=== PATIENT | female | born 1990 | race African-American/Black ===

== ENCOUNTER 2017-09-04 10:10 | Emergency (ER) | payer MEDICAID ==
[~2017-09-04] VITALS: Ht 160 cm; Wt 84.0 kg
[~2017-09-04 10:10] MED LIST: ALBU8I INH; MEDR4PAK3 PO; NAPR-576 PO
[2017-09-04 10:12] VITALS: BP 123/72; PULSE 75; RESP 18; TEMP 97.6; O2SAT 99
--- NOTE | 2017-09-04 10:48 | PD ---
HPI Chief Complaint: Related Problem Time Seen by Provider: 10:18 Travel History International Travel<30 days: No Contact w/Intl Traveler<30days: No Traveled to known affect area: No History of Present Illness HPI 27-year-old female, approximately 12 weeks , presents to the emergency Department with complaint of urinary frequency 2 days. Denies dysuria. States she feels like she is dehydrated because she's been urinating so much. Reports good fluid intake. Reports intermittent cramping that feels like menstrual cramping. Denies cramping at this time. Denies vaginal bleeding, discharge, leakage. Denies fevers, abdominal pain, vomiting. Has not taken any medications or drainage to alleviate her symptoms. Symptoms are mild in severity. Nonradiating or aggravating factors. 3 para 2. Allergies to amoxicillin. [facility]. Does not have an established primary care provider. Denies significant past medical history. No current medications. No other medical complaints. No other modifying factors or associated signs and symptoms. PFSH Past Medical History Hx Anticoagulant Therapy: No Anemia: Yes Cardiovascular Problems: No Chemotherapy: No Cerebrovascular Accident: No Diabetes: No Diminished Hearing: No Respiratory: Yes (ASTHMA) Sickle Cell Disease: Yes (TRAIT) : 2 Para: 2 Past Surgical History Section: Yes (X 2 ) Gynecologic Surgery: Yes (2 C SECTIONS) Hysterectomy: No Other Surgery: Yes (IUD IN PLACE) Social History Alcohol Use: Yes (socially) Tobacco Use: Yes (4-5 cig per day) Substance Use: No Allergies-Medications (Allergen,Severity, Reaction): Coded Allergies: amoxicillin (Unverified Allergy, Severe, Hives, 09/04/17) penicillin G (Unverified Allergy, Severe, 09/04/17) Reported Meds & Prescriptions Reported Meds & Active Scripts Active Medrol Dosepak (Methylprednisolone) 4 Mg Aguila 4 Mg PO DIRECTED TAKE DIRECTED Ventolin Hfa (Albuterol Sulfate) 8 Gm Aero 2 Puff INH Q4 PRN Naproxen 500 Mg Tab 500 Mg PO Q12HR PRN Review of Systems Except as stated in HPI: all other systems reviewed are Neg Physical Exam Narrative GENERAL: Well-nourished, well-developed black female patient, in no acute distress SKIN: Warm and dry. No rash. HEAD: Atraumatic. Normocephalic. EYES: Pupils equal and round. No scleral icterus. No injection or drainage. ENT: Mucosa pink and moist. NECK: Trachea midline. CARDIOVASCULAR: Regular rate and rhythm. No murmur appreciated. RESPIRATORY: No accessory muscle use. Clear to auscultation. Breath sounds equal bilaterally. GASTROINTESTINAL: Abdomen soft, non-tender, nondistended. Hepatic and splenic margins not palpable. Bowel sounds are active 4 quadrants. Bladder nontender and nondistended. MUSCULOSKELETAL: No obvious deformities. No clubbing. No cyanosis. No edema. BACK: No CVA tenderness. NEUROLOGICAL: Awake and alert. Oriented 3. No obvious cranial nerve deficits. Motor grossly within normal limits. Normal speech. Moves all extremities. 5/5 strength to all extremities. PSYCHIATRIC: Appropriate mood and affect; insight and judgment normal. Data Data Last Documented VS Vital Signs Date Time Temp Pulse Resp B/P (MAP) Pulse Ox O2 Delivery O2 Flow Rate FiO2 09/04/17 10:12 97.6 75 18 123/72 (89) 99 Orders Orders Urinalysis - C+S If Indicated (09/04/17 10:25) Heart Tones (09/04/17 10:25) Ed Discharge Order (09/04/17 12:12) Labs Laboratory Tests Test 09/04/17 10:40 Urine Color LIGHT-YELLOW Urine Turbidity CLEAR Urine pH 8.0 Urine Specific [place] 1.008 Urine Protein NEG mg/dL Urine Glucose (UA) NEG mg/dL Urine Ketones NEG mg/dL Urine Occult Blood NEG Urine Nitrite NEG Urine Bilirubin NEG Urine Urobilinogen LESS THAN 2.0 MG/DL Urine Leukocyte Esterase NEG Urine RBC LESS THAN 1 /hpf Urine WBC 3 /hpf Urine Squamous Epithelial Cells <1 /hpf Urine Mucus FEW /lpf Microscopic Urinalysis Comment CULT NOT INDICATED MDM Medical Decision Making Medical Screen Exam Complete: Yes Emergency Medical Condition: Yes Medical Record Reviewed: Yes Differential Diagnosis Cystitis, UTI, pyelonephritis Narrative Course 27-year-old female with urinary frequency. 12 weeks . Has abdominal pain, vaginal bleeding, discharge, leakage. Denies fevers. Patient is afebrile and nontoxic-appearing. heart tones 140's. Urinalysis ordered. 1209: Urinalysis signs of infection or bacteremia. I discussed the patient with Dr. Santillan, my attending physician, and he agrees with discharge. Instructed Patient follow-up with carbon lamp cleaner. Instructed patient to follow up with primary care provider. Patient verbalizes understanding and agreement with treatment plan. Patient is medically cleared and stable for discharge. Discussed reasons to return to the emergency department. Patient agrees with treatment plan. The patients vital signs are stable and the patient is stable for outpatient follow-up and treatment. Patient discharged home, stable and in no acute distress. Diagnosis Primary Impression: Urinary frequency Additional Impression: Qualified Codes: Z3A.12 - 12 weeks gestation of Referrals: [facility] Lower[facility] Operator Primary Care Physician Additional Instructions: Follow up with carbon lamp cleaner Follow-up with primary care provider Return to the emergency department immediately if worsening of symptoms Med/Other Pt SpecificInfo: No Change to Meds, No Meds Exist/No RX given Disposition: DISCHARGE HOME Condition: Stable Vivian [place] Sep 04, 2017 10:48
[2017-09-04 11:08] LABS: BLOOD, URINE NEG (NEG); COMMENT (UR) CULT NOT INDICATED; CULTURE IF INDICATED CULT NOT INDICATED; GLUCOSE,URINE NEG (NEG); KETONE, URINE NEG (NEG); MUCUS URINE FEW /lpf (OCC); NITRITE,URINE NEG (NEG); SQUAMOUS EPITHELIAL CELL URINE <1 /hpf (0-5); URINE COLOR LIGHT-YELLOW (YELLW/STRAW)
== END 2017-09-04 12:28 | disposition home or self-care (01) ==
LOC: NEPD 10:10
DX: O26.891 Other specified pregnancy related conditions, first trimester (principal); R35.0 Frequency of micturition; O99.011 Anemia complicating pregnancy, first trimester; J45.909 Unspecified asthma, uncomplicated; D57.3 Sickle-cell trait; O99.331 Smoking (tobacco) complicating pregnancy, first trimester; Z3A.12 12 weeks gestation of pregnancy
CPT/HCPCS: 81001; 99283

== ENCOUNTER 2017-10-05 20:29 | Emergency (ER) | payer MEDICAID ==
--- NOTE | 2017-10-05 21:19 | PD ---
HPI Chief Complaint Right buttock pain after fall Date Seen: Oct 05, 2017 Time Seen: 21:15 Travel History International Travel<30 Days: No Contact w/Intl Traveler<30Days: No Known Affected Area: No History of Present Illness HPI 27-year-old who is at 16 weeks today who sees Dr. Sage for care. Patient states that at noon today she fell down some stairs was taken out of the trash and felt to strain in her right buttock. Patient is able to walk with minor discomfort and denies abdominal pain. No abdominal trauma was noted. Weeks Gestation: 16 Para: 2 : 3 History Past Medical History Medical History: Denies Significant Hx Obstetric History Obstetric History 2 Past Surgical History Narrative Surgical 2 Family History Family History: Negative Social History Alcohol Use: No Tobacco Use: No Substance Abuse: No Allergies-Medications (Allergen,Severity, Reaction): Coded Allergies: amoxicillin (Unverified Allergy, Severe, Hives, 09/04/17) penicillin G (Unverified Allergy, Severe, 09/04/17) Home Meds Active Scripts Methylprednisolone (Medrol Dosepak) 4 Mg Aguila, 4 MG PO DIRECTED, #1 AGUILA TAKE DIRECTED Prov:Kina Finn MD 07/02/16 Albuterol Sulfate 8 GM Inhaler (Ventolin Hfa) 8 Gm Aero, 2 PUFF INH Q4 Y for SOB /WHEEZING, #1 BOX 0 Refills Prov:Kina Finn MD 07/02/16 Naproxen (Naproxen) 500 Mg Tab, 500 MG PO Q12HR Y for PAIN, #20 TAB Prov:Brien Crouch MD 02/08/16 Review of Systems Except as stated in HPI: all other systems reviewed are Neg Physical Exam Narrative GENERAL: Well-nourished, well-developed patient. SKIN: Warm and dry. HEAD: Normocephalic and atraumatic. EYES: No scleral icterus. No injection or drainage. ENT: No nasal drainage noted. Mucous membranes pink. Airway patent. NECK: Supple, trachea midline. No JVD. CARDIOVASCULAR: Regular rate and rhythm without murmurs, gallops, or rubs. RESPIRATORY: Breath sounds equal bilaterally. No accessory muscle use. ABDOMEN/GI: Abdomen soft, non-tender, bowel sounds present, no rebound, no guarding Gravid to [16-] weeks size GENITOURINARY: FHT's: 135 by Doppler Category: [-] Baseline: [-] Reactive: [-] Variability: [-] Decels: [-] EXTREMITIES: No cyanosis or edema. Normal range of motion both lower extremities, slightly decreased flexibility in right hip flexor. BACK: Nontender without obvious deformity. No CVA tenderness. NEUROLOGICAL: Awake and alert. Motor and sensory grossly within normal limits. Five out of 5 muscle strength in all muscle groups. Normal speech. Data Data Vital Signs Reviewed: Yes [facility] Medical Record Reviewed: Yes Plan 27-year-old with muscle strain after a fall at 16 weeks gestation Patient will take Tylenol as necessary for pain with ice to the right buttock as needed for 24 hours Follow up with OB as scheduled Diagnosis Diagnosis: Primary Impression: 16 weeks gestation of Additional Impressions: Previous delivery affecting , antepartum Muscle strain of gluteal region Disposition: 01 DISCHARGE HOME Yamileth Lozoya MD Oct 05, 2017 21:19
== END 2017-10-05 23:18 | disposition home or self-care (01) ==
LOC: HOBED 20:29
DX: O9A.212 Injury, poisoning and certain other consequences of external causes complicating pregnancy, second trimester (principal); S76.011A Strain of muscle, fascia and tendon of right hip, initial encounter; W10.9XXA Fall (on) (from) unspecified stairs and steps, initial encounter; Z3A.16 16 weeks gestation of pregnancy
CPT/HCPCS: 99284

== ENCOUNTER 2017-12-13 15:32 | Emergency (ER) | payer MEDICAID ==
[2017-12-13 15:48] VITALS: BP 116/55; PULSE 83; RESP 16; TEMP 98.8; O2SAT 100
[2017-12-13 18:25] VITALS: O2SAT 100
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
[2017-12-13 21:30] LABS: HEMATOCRIT 33.8 % (35.0-46.0); MEAN CELL VOLUME 84.5 FL (80.0-100.0); MEAN CORPUSCULAR HEMOGLOBIN 27.4 PG (27.0-34.0); MEAN CORPUSCULAR HGB CONC 32.4 % (32.0-36.0); PLATELET COUNT 348 TH/MM3 (150-450); RED CELL DISTRIBUTION WIDTH 13.4 % (11.6-17.2)
[2017-12-13 21:56] LABS: BILIRUBIN, URINE NEG (NEG); BLOOD, URINE NEG (NEG); GLUCOSE,URINE NEG (NEG); KETONE, URINE NEG (NEG); MUCUS URINE FEW /lpf (OCC); NITRITE,URINE NEG (NEG); PH, URINE 5.5 (5.0-8.5); SQUAMOUS EPITHELIAL CELL URINE 1 /hpf (0-5); URINE COLOR YELLOW (YELLW/STRAW); URINE LEUKOCYTE ESTERASE SMALL (NEG)
== END 2017-12-14 06:45 | disposition home or self-care (01) ==
LOC: HOBED 15:32
DX: O9A.312 Physical abuse complicating pregnancy, second trimester (principal); S39.91XA Unspecified injury of abdomen, initial encounter; R82.99 Other abnormal findings in urine; Y07.03 Male partner, perpetrator of maltreatment and neglect; Z3A.25 25 weeks gestation of pregnancy
CPT/HCPCS: 76815; 80307; 81001; 83030; 85027; 86850; 86900; 86901; 87086; 99284; G0481

== ENCOUNTER 2018-02-22 21:46 | Emergency (ER) | payer MEDICAID ==
--- NOTE | 2018-02-22 22:34 | PD ---
HPI Chief Complaint Decreased movement Date Seen: February 22, 2018 Time Seen: 22:29 Travel History International Travel<30 Days: No Contact w/Intl Traveler<30Days: No Known Affected Area: No History of Present Illness HPI Patient is 27-year-old black female at 36 weeks previous who desires delivery this time. She is a patient of Delia Cabrera and presents complaining of decreased movement some mild cramping. She denies bleeding or leakage of fluid. Baby is moving here in OB ED. NST is reactive and no regular contractions Weeks Gestation: 36 Para: 2 : 3 History Obstetric History Obstetric History 1 vaginal delivery 1 Past Surgical History Narrative Surgical Social History Alcohol Use: No Tobacco Use: No Substance Abuse: No Allergies-Medications (Allergen,Severity, Reaction): Coded Allergies: amoxicillin (Unverified Allergy, Severe, Hives, 09/04/17) penicillin G (Unverified Allergy, Severe, 09/04/17) Home Meds Active Scripts Methylprednisolone (Medrol Dosepak) 4 Mg Aguila, 4 MG PO DIRECTED, #1 AGUILA TAKE DIRECTED Prov:Kina Finn MD 07/02/16 Albuterol Sulfate 8 GM Inhaler (Ventolin Hfa) 8 Gm Aero, 2 PUFF INH Q4 Y for SOB /WHEEZING, #1 BOX 0 Refills Prov:Kina Finn MD 07/02/16 Naproxen (Naproxen) 500 Mg Tab, 500 MG PO Q12HR Y for PAIN, #20 TAB Prov:Brien Crouch MD 02/08/16 Review of Systems General / Constitutional: No: Fever, Weight Gain, Chills, Other Eyes: No: Diploplia, Blurred Vision, Visual changes, Pain, Photophobia HENT: No: Headaches, Vertigo, Lightheadedness Cardiovascular: No: Irregular Rhythm, Chest Pain or Discomfort, Palpitations, Tachycardia, Syncope, Varicosities, Edema, Cyanosis Respiratory: No: Cough, Short of Breath, Other Gastrointestinal: No: Nausea, Vomiting, Diarrhea Genitourinary: No: Decreased Urinary Output, Oliguria Musculoskeletal: No: Limited ROM, Weakness, Cramping, Edema, Pain Skin: No Rash, No Itching, No Dryness, No Lumps, No Change in Pigmentation, No Change in Nails, No Alopecia, No Lesions Neurologic: No: Weakness, Dizziness, Syncope, Focal Abnormalities, Coordination Problem, Headache, Slurred Speech, Seizures Psychiatric: No: Depression, Suicidal Ideations, Homicidal Ideation Endocrine: No: Heat Intolerance, Cold Intolerance, Polydipsia, Polyuria, Other Physical Exam Narrative GENERAL: Well-nourished, well-developed patient. SKIN: Warm and dry. HEAD: Normocephalic and atraumatic. EYES: No scleral icterus. No injection or drainage. ENT: No nasal drainage noted. Mucous membranes pink. Airway patent. NECK: Supple, trachea midline. No JVD. CARDIOVASCULAR: Regular rate and rhythm without murmurs, gallops, or rubs. RESPIRATORY: Breath sounds equal bilaterally. No accessory muscle use. BREASTS: Bilateral exam showed no masses , no retractions, no nipple discharge. ABDOMEN/GI: Abdomen soft, non-tender, bowel sounds present, no rebound, no guarding Gravid to [36-] weeks size Fundal Height: [36-] GENITOURINARY: External Genitalia: intact and normal in appearance BUS glands: [-] Cervix: [post-] Dilatation: [0-] Effacement: [-0] Station: [-3] Presentation: [vtx-] Membranes: [intact ] Uterine Contractions: [-none] FHT's: Category: [-1] Baseline: [-133] Reactive: [R-] Variability: [mod-] Decels: [-0] EXTREMITIES: No cyanosis or edema. BACK: Nontender without obvious deformity. No CVA tenderness. NEUROLOGICAL: Awake and alert. Motor and sensory grossly within normal limits. Five out of 5 muscle strength in all muscle groups. Normal speech. MDM Interpretation(s) Patient is 27-year-old black female PCS at 36 weeks here for decreased movement mild cramping. NST is reactive, no contractions, cervix is closed, Plan to discharge home to kick counts and observations at home. Plan Plan to discharge home as above follow-up with her OB provider Delia Cabrera, and patient hopefully will have a delivery with this baby in the near future Diagnosis Diagnosis: Primary Impression: Decreased movement during in third trimester, antepartum Additional Impressions: Previous section 36 weeks gestation of Disposition: DISCHARGE HOME Condition: Stable Anuj Garcia II, MD February 22, 2018 22:34
== END 2018-02-22 23:24 | disposition home or self-care (01) ==
LOC: HOBED 21:46
DX: O36.8130 Decreased fetal movements, third trimester, not applicable or unspecified (principal); O34.219 Maternal care for unspecified type scar from previous cesarean delivery; Z3A.36 36 weeks gestation of pregnancy
CPT/HCPCS: 59025

== ENCOUNTER 2018-02-28 11:43 | Inpatient (IN) | payer MEDICAID ==
[~2018-02-28] VITALS: Ht 157.5 cm; Wt 96.0 kg
[2018-02-28] MEDS ORDERED: LACTATED RINGER'S 1000 ML INJ 1,000 ML IV PRN (13:23)
--- NOTE | 2018-02-28 13:23 | PD ---
HPI Chief Complaint LOF Date Seen: February 28, 2018 Time Seen: 13:08 Travel History International Travel<30 Days: No Contact w/Intl Traveler<30Days: No Known Affected Area: No History of Present Illness HPI Patient is a 27-year-old female at 36/6 weeks gestation who presented to OB triage with complaints of loss of fluid at 5:30 AM this morning. Patient reports that fluid was slightly blood-tinged but clear. Patient endorses movement and mild contractions. Patient has not had her GBS culture results yet. Patient denies any fevers, chills, chest pain, shortness of breath, nausea or vomiting. Weeks Gestation: 36 Para: 2 : 3 History Past Medical History Medical History: Denies Significant Hx Obstetric History Obstetric History Denies any complications with this thus far C/S x2 -first was due to distress and bradycardia -second was repeat Past Surgical History Narrative Surgical c/s x2 Family History Family History: Negative Social History Alcohol Use: No Tobacco Use: No Substance Abuse: No Allergies-Medications (Allergen,Severity, Reaction): Coded Allergies: amoxicillin (Unverified Allergy, Severe, Hives, 09/04/17) penicillin G (Unverified Allergy, Severe, 09/04/17) Home Meds Active Scripts Methylprednisolone (Medrol Dosepak) 4 Mg Aguila, 4 MG PO DIRECTED, #1 AGUILA TAKE DIRECTED Prov:Kina Finn MD 07/02/16 Albuterol Sulfate 8 GM Inhaler (Ventolin Hfa) 8 Gm Aero, 2 PUFF INH Q4 Y for SOB /WHEEZING, #1 BOX 0 Refills Prov:Kian Finn MD 07/02/16 Naproxen (Naproxen) 500 Mg Tab, 500 MG PO Q12HR Y for PAIN, #20 TAB Prov:Brien Crouch MD 02/08/16 Review of Systems Except as stated in HPI: all other systems reviewed are Neg (per HPI) Physical Exam Narrative GENERAL: Well-nourished, well-developed patient. SKIN: Warm and dry. HEAD: Normocephalic and atraumatic. EYES: No scleral icterus. No injection or drainage. ENT: No nasal drainage noted. Mucous membranes pink. Airway patent. NECK: Supple, trachea midline. No JVD. CARDIOVASCULAR: Regular rate and rhythm without murmurs, gallops, or rubs. RESPIRATORY: Breath sounds equal bilaterally. No accessory muscle use. ABDOMEN/GI: Abdomen soft, non-tender, bowel sounds present, no rebound, no guarding Gravid to 36 weeks size GENITOURINARY: External Genitalia: intact and normal in appearance Dilatation: closed Effacement: 30 Station: -3 Membranes:SROM at 5:30 am on 02/28 Uterine Contractions: irregular FHT's: Category: 1 Baseline: 130 Reactive: yes Variability:moderate Decels: none EXTREMITIES: No cyanosis or edema. BACK: Nontender without obvious deformity. No CVA tenderness. NEUROLOGICAL: Awake and alert. Motor and sensory grossly within normal limits. Five out of 5 muscle strength in all muscle groups. Normal speech. Data Data Vital Signs Reviewed: Yes [facility] Medical Record Reviewed: Yes Plan Patient is a 27-year-old female at 36/6 weeks gestation who presented to OB triage with complaints of loss of fluid at 5:30 AM this morning. IUP at 36/6 weeks gestation 1. monitor VS and monitoring 2. category 1, NST reassuring 3. amnisure positive 4. GBS unknown, pt allergic to pen G will ppx treat with IV clindamycin 5. cervical check: closed/30/ -3 6. pitocin 2:2:30 7. Admit to L&D for labor ELTON Esquivel Patient Instructions: General Instructions Departure Forms: Tests/Procedures Bethany Traore MD, R1 February 28, 2018 13:23
[2018-02-28] MEDS ORDERED: LIDOCAINE HCL 1% 50 ML VIAL I-DERMAL PRN (13:30)
[2018-02-28] MEDS ORDERED: OXYTOCIN 30 UNITS-500ML PREMIX 500 ML IV PRN (13:30)
[2018-02-28] MEDS ORDERED: MINERAL OIL 10 ML VIAL TOPICAL PRN (13:30)
[2018-02-28] MEDS ORDERED: CITRIC ACID-SODIUM CITRATE LIQ 30 ML UDC PO SCH (13:30)
[2018-02-28] MEDS ORDERED: SODIUM CHLORID 0.9% 500 ML INJ 500 ML IV PRN (13:30)
[2018-02-28] MEDS ORDERED: LIDOCAINE HCL 1% 50 ML VIAL INFIL PRN (13:30)
[2018-02-28] MEDS ORDERED: OXYTOCIN 30 UNITS-500ML PREMIX 500 ML IV ONE (13:30)
--- NOTE | 2018-02-28 13:32 | HHI.HP ---
History & Physical H&P HPI Chief Complaint LOF Date Seen: February 28, 2018 Time Seen: 13:08 Travel History International Travel<30 Days: No Contact w/Intl Traveler<30Days: No Known Affected Area: No History of Present Illness HPI Patient is a 27-year-old female at 36/6 weeks gestation who presented to OB triage with complaints of loss of fluid at 5:30 AM this morning. Patient reports that fluid was slightly blood-tinged but clear. Patient endorses movement and mild contractions. Patient has not had her GBS culture results yet. Patient denies any fevers, chills, chest pain, shortness of breath, nausea or vomiting. Weeks Gestation: 36 Para: 2 : 3 History (Limited) History Past Medical History Medical History: Denies Significant Hx Obstetric History Obstetric History Denies any complications with this thus far C/S x2 -first was due to distress and bradycardia -second was repeat Past Surgical History Narrative Surgical c/s x2 Family History Family History: Negative Social History Alcohol Use: No Tobacco Use: No Substance Abuse: No Allergies-Medications Allergies-Medications (Allergen,Severity, Reaction): Coded Allergies: amoxicillin (Unverified Allergy, Severe, Hives, 09/04/17) penicillin G (Unverified Allergy, Severe, 09/04/17) Home Meds Active Scripts Methylprednisolone (Medrol Dosepak) 4 Mg Aguila, 4 MG PO DIRECTED, #1 AGUILA TAKE DIRECTED Prov:Kina Finn MD 07/02/16 Albuterol Sulfate 8 GM Inhaler (Ventolin Hfa) 8 Gm Aero, 2 PUFF INH Q4 Y for SOB /WHEEZING, #1 BOX 0 Refills Prov:Kina Finn MD 07/02/16 Naproxen (Naproxen) 500 Mg Tab, 500 MG PO Q12HR Y for PAIN, #20 TAB Prov:Brien Crouch MD 02/08/16 ROS Review of Systems Except as stated in HPI: all other systems reviewed are Neg (per HPI) Physical Exam Physical Exam Narrative GENERAL: Well-nourished, well-developed patient. SKIN: Warm and dry. HEAD: Normocephalic and atraumatic. EYES: No scleral icterus. No injection or drainage. ENT: No nasal drainage noted. Mucous membranes pink. Airway patent. NECK: Supple, trachea midline. No JVD. CARDIOVASCULAR: Regular rate and rhythm without murmurs, gallops, or rubs. RESPIRATORY: Breath sounds equal bilaterally. No accessory muscle use. ABDOMEN/GI: Abdomen soft, non-tender, bowel sounds present, no rebound, no guarding Gravid to 36 weeks size GENITOURINARY: External Genitalia: intact and normal in appearance Dilatation: closed Effacement: 30 Station: -3 Membranes:SROM at 5:30 am on 02/28 Uterine Contractions: irregular FHT's: Category: 1 Baseline: 130 Reactive: yes Variability:moderate Decels: none EXTREMITIES: No cyanosis or edema. BACK: Nontender without obvious deformity. No CVA tenderness. NEUROLOGICAL: Awake and alert. Motor and sensory grossly within normal limits. Five out of 5 muscle strength in all muscle groups. Normal speech. Data Data Data Vital Signs Reviewed: Yes MDM MDM Medical Record Reviewed: Yes Plan Patient is a 27-year-old female at 36/6 weeks gestation who presented to OB triage with complaints of loss of fluid at 5:30 AM this morning. IUP at 36/6 weeks gestation 1. monitor VS and monitoring 2. category 1, NST reassuring 3. amnisure positive 4. GBS unknown, pt allergic to pen G will ppx treat with IV clindamycin 5. cervical check: closed/30/ -3 6. pitocin 2:2:30 7. Admit to L&D for labor Bethany Rock Dr[address] MD, R1 February 28, 2018 13:32
[2018-02-28] MEDS ORDERED: SODIUM CHLOR 0.9% 1000 ML INJ 1,000 ML IV PRN (13:43)
[2018-02-28 14:36] LABS: BACTERIA, URINE RARE /hpf; BILIRUBIN, URINE NEG (NEG); BLOOD, URINE MOD (NEG); GLUCOSE,URINE NEG (NEG); KETONE, URINE NEG (NEG); NITRITE,URINE NEG (NEG); SQUAMOUS EPITHELIAL CELL URINE 1 /hpf (0-5); URINE COLOR LIGHT-YELLOW (YELLW/STRAW); URINE LEUKOCYTE ESTERASE NEG (NEG)
[2018-02-28 14:42] LABS: BASOPHIL % 0.4 % (0.0-2.0); EOSINOPHIL # 0.1 TH/MM3 (0-0.4); EOSINOPHIL % 1.2 % (0.0-4.0); HEMATOCRIT 32.7 % (35.0-46.0); HEMOGLOBIN 11.1 GM/DL (11.6-15.3); LYMPH % 22.6 % (9.0-44.0); LYMPHOCYTE # 2.6 TH/MM3 (1.0-4.8); MEAN CELL VOLUME 80.9 FL (80.0-100.0); MEAN CORPUSCULAR HEMOGLOBIN 27.4 PG (27.0-34.0); MEAN CORPUSCULAR HGB CONC 33.9 % (32.0-36.0); MEAN PLATELET VOLUME 8.4 FL (7.0-11.0); MONO % 6.3 % (0.0-8.0); MONOCYTE # 0.7 TH/MM3 (0-0.9); NEUT % 69.5 % (16.0-70.0); PLATELET COUNT 380 TH/MM3 (150-450); RED BLOOD COUNT 4.04 MIL/MM3 (4.00-5.30); WHITE BLOOD COUNT 11.5 TH/MM3 (4.0-11.0)
[2018-02-28] MEDS: LACTATED RINGER'S 1000 ML INJ 1,000 ML IV SCH ×2 (14:46→21:23)
[2018-02-28] MEDS: CLINDAMYCIN 900 MG/NS PREMIX 50 ML IV SCH (15:24)
[2018-03-01] MEDS: LACTATED RINGER'S 1000 ML INJ 1,000 ML IV SCH (05:23)
[2018-03-01] MEDS: CLINDAMYCIN 900 MG/NS PREMIX 50 ML IV SCH ×2 (07:48)
[2018-03-01] MEDS ORDERED: VANCOMYCIN INJ 1 GM in SODIUM CHLORIDE 0.9% INJ 250 ML IV SCH (10:00)
[2018-03-01] MEDS ORDERED: VANCOMYCIN INJ 1,000 MG in SODIUM CHLOR 0.9% 250 ML INJ 250 ML IV SCH (11:00)
[2018-03-01] MEDS ORDERED: VANCOMYCIN INJ 1,000 MG in SODIUM CHLORIDE 0.9% INJ 250 ML IV SCH (11:00)
--- NOTE | 2018-03-01 11:52 | PD.LABORPN ---
Subjective Subjective Patient was seen and examined this morning with Dr. Esquivel. Patient comfortable. Without specific complaints. Objective Objective Pelvic Exam: Cervix: Posterior Dilatation: 0-1 Effacement: 100% Station: -3 Presentation: [-] Membranes: ruptured Uterine Contractions: q2-3 minutes FHT's: Category: I Baseline: 130s Reactive: +accels Variability: moderate Decels: none noted Weeks Gestation: 36 Assessment/Plan Assessment and Plan Patient is a 27-year-old female at 37 weeks gestation admitted to L&D s/p [facility] at home. Patient with history of two prior cesarians, desiring if able this . IUP at 37 weeks gestation -category 1 tracing -amnisure positive -GBS unknown, pt allergic to pen G will ppx treat with IV clindamycin, transition to IV Vancomycin -Cervix this AM: 0-1/100/-3 -Continue pitocin at 2-2-30 sdw Joaquín Dunn MD R2 March 01, 2018 11:52
[2018-03-01] MEDS ORDERED: LACTATED RINGER'S 1000 ML INJ 1,000 ML IV ONE (12:00)
[2018-03-01] MEDS ORDERED: LIDOCAINE HCL 1% PF 5 ML SYRINGE OTHER ONE (12:00)
[2018-03-01] MEDS ORDERED: ONDANSETRON HCL 4 MG/2 ML VIAL IV ONE (12:00)
[2018-03-01] MEDS ORDERED: OXYTOCIN 10 UNIT/ML AMP IV ONE (12:00)
[2018-03-01] MEDS ORDERED: PHENYLEPH/NS 1000 MCG/10 ML SYR IV ONE (12:00)
[2018-03-01] MEDS ORDERED: ePHEDrine/NS 25 MG/5 ML SYRINGE IV ONE (12:00)
[2018-03-01] MEDS ORDERED: DEXAMETHASONE SOD PHOS 4 MG/ML VIAL IV ONE (12:00)
[2018-03-01] MEDS ORDERED: GENTAMICIN INJ 120 MG in SODIUM CHLORIDE 0.9% INJ 100 ML IV ONE (13:00)
--- NOTE | 2018-03-01 13:12 | HHI.PR ---
[employer] Note Note with premature rupture membranes yesterday with 2 prior sections here for . Patient was admitted and started on vancomycin she had a penicillin allergy. Cervix exam is cl/50/-3 with mild contractions q 5 min on pitocin augmentation since yesterday at 1pm. No cervical change. Plan c- section for failure to progress in a prior x 2 Yamileth Lozoya MD March 01, 2018 13:12
[2018-03-01] MEDS ORDERED: MORPHINE SULFATE PF 5 MG/10 ML VIAL ONE (13:23)
[2018-03-01] MEDS ORDERED: diphenhydrAMINE HCL 50 MG/ML VIAL ONE (14:45)
[2018-03-01] MEDS ORDERED: OXYTOCIN 30 UNITS-500ML PREMIX 500 ML ONE (15:37)
[2018-03-01] MEDS ORDERED: ACETAMINOPHEN 1000 MG/100 ML 100 ML IV ONE ×2 (15:45→16:00)
[2018-03-01] MEDS ORDERED: SODIUM CHLORIDE 0.9% FLUSH 10 ML FLUSH IV FLUSH PRN (16:00)
[2018-03-01] MEDS ORDERED: OXYTOCIN 30 UNITS-500ML PREMIX 500 ML IV ONE (16:00)
--- NOTE | 2018-03-01 16:08 | PD.OB.DELI ---
Procedure Note Section Procedure Pre Op Diagnosis: (1) 38 weeks gestation of (2) Previous delivery affecting , antepartum (3) Failure to progress in labor, delivered, current hospitalization Post Op Diagnosis: Performed by Yamileth Lozoya Procedure: Repeat Low Transverse Sec Indication for delivery: Desired elective repeat Informed consent obtained: For anesthesia, For procedure Confirmed correct: Time-out taken Anesthesia: Spinal Medication prior to procedure: As documented in eMAR, Antibiotics, IV Monitoring during procedure: Blood pressure monitoring, secured entrance monitor Urinary catheter: Inserted using sterile technique, To dependent drainage Sterile preparation: Duraprep, In usual fashion Position: Supine with wedge to left side Operative Features Skin Incision: Pfannenstiel Uterine Incision: Low transverse w/knife / blunt ext Membranes Ruptured: Previously Presentation: Occiput anterior, Vertex Delivery date: March 01, 2018 Delivery time: 14:08 Delivery of infant: Uneventful : Male One Minute : 8 Five Minute : 9 Weight: 2475 Status of : Viable Placenta delivered: Intact Medications: Antibiotics Estimated blood loss: 600cc Procedure tolerated: Well Maternal Complications: Other (Extensive dense adhesions throughout pelvic) Maternal Condition: Stable Condition: Stable Yamileth Lozoya MD March 01, 2018 16:08
[2018-03-01] MEDS ORDERED: ONDANSETRON ODT 4 MG TAB PO PRN (16:15)
[2018-03-01] MEDS ORDERED: EPIDURAL-DIPHENHYDRAMINE HCL 50 MG CAP PO PRN (17:00)
[2018-03-01] MEDS ORDERED: EPIDURAL-NALOXONE HCL 0.4 MG/ML AMP IV PUSH PRN (17:00)
[2018-03-01] MEDS ORDERED: EPIDURAL-DO NOT ADMINISTER ANTICOAGULANTS PRN (17:00)
[2018-03-01] MEDS ORDERED: EPIDURAL-NO SYSTEMIC NARCOTICS PRN (17:00)
[2018-03-01] MEDS ORDERED: EPIDURAL-DIPHENHYDRAMINE HCL 50 MG/ML VIAL IV PUSH PRN (17:00)
[2018-03-01] MEDS ORDERED: hydrOXYzine HCL 50 MG/ML VIAL IM PRN (18:30)
[2018-03-01 20:07] VITALS: BP 92/52; PULSE 70; RESP 18; TEMP 98.4
[2018-03-01] MEDS ORDERED: SODIUM CHLORIDE 0.9% FLUSH 10 ML FLUSH IV FLUSH SCH (21:00)
[2018-03-01] MEDS ORDERED: LACTATED RINGER'S 1000 ML INJ 1,000 ML IV SCH (21:00)
[2018-03-01] MEDS ORDERED: OXYTOCIN 30 UNITS-500ML PREMIX 500 ML IV PRN (21:00)
[2018-03-01 23:51] VITALS: BP 95/52; PULSE 80; RESP 18; TEMP 97.2
[2018-03-02 04:08] VITALS: BP 109/64; PULSE 69; RESP 17; TEMP 98.5
[2018-03-02] MEDS: DOCUSATE SODIUM 50 MG/SENNA 8.6 MG TAB PO PRN ×2 (05:12→19:40)
[2018-03-02] MEDS: IBUPROFEN 600 MG TAB PO PRN ×3 (05:13→19:36)
[2018-03-02] MEDS: oxyCODONE/ACETAMINOPHEN 5 MG/325 MG TAB PO PRN ×3 (05:13→19:36)
[2018-03-02 05:54] LABS: AUTOMATED NEUTROPHIL # 10.8 TH/MM3 (1.8-7.7); BASOPHIL # 0.1 TH/MM3 (0-0.2); BASOPHIL % 0.7 % (0.0-2.0); EOSINOPHIL # 0.1 TH/MM3 (0-0.4); EOSINOPHIL % 0.5 % (0.0-4.0); HEMATOCRIT 29.7 % (35.0-46.0); HEMOGLOBIN 10.1 GM/DL (11.6-15.3); LYMPH % 20.1 % (9.0-44.0); MEAN CELL VOLUME 79.6 FL (80.0-100.0); MEAN CORPUSCULAR HGB CONC 33.9 % (32.0-36.0); MEAN PLATELET VOLUME 7.7 FL (7.0-11.0); MONO % 5.6 % (0.0-8.0); MONOCYTE # 0.8 TH/MM3 (0-0.9); NEUT % 73.1 % (16.0-70.0); PLATELET COUNT 314 TH/MM3 (150-450); RED BLOOD COUNT 3.74 MIL/MM3 (4.00-5.30); WHITE BLOOD COUNT 14.7 TH/MM3 (4.0-11.0)
--- NOTE | 2018-03-02 08:33 | MP ---
cc: Yamileth Lozoya MD DATE OF OPERATION: 03/01/2018 DATE OF PROCEDURE: 03/01/2018 PREOPERATIVE DIAGNOSES: 1. A 38-week gestation. 2. Previous section x 2. 3. Failure to progress with a failed vaginal after attempt. POSTOPERATIVE DIAGNOSES: 1. A 38-week gestation. 2. Previous section x 2. 3. Failure to progress with a failed vaginal after attempt. PROCEDURE PERFORMED: Repeat low transverse section without extension. ESTIMATED BLOOD LOSS: 600 mL. ANESTHESIA: Spinal. COMPLICATIONS: None. MEDICATIONS: The patient was already on vancomycin. Gentamicin was added to her preop antibiotics. DRAINS: Espinoza to gravity. SPECIMENS: No pathology. COUNTS: Correct x 3. FINDINGS: Extensive adhesions throughout the pelvis attaching the entire anterior portion of the uterus from the serosa down to the muscular layer of the uterus to the anterior abdominal wall and the fascia. Infant male was delivered in a vertex presentation. Apgars were 8 and 9. Weight was 5 pounds 3 ounces with clear fluid. Hemostasis was noted after the case. DESCRIPTION OF PROCEDURE: The patient was taken down to the operating room, prepped and draped in the usual sterile fashion and placed in dorsal supine position. After adequate anesthetic was obtained, she was placed into the left lateral tilt in the dorsal supine position and a Pfannenstiel incision was made through her previous scar and taken down to the fascia. The fascia was nicked in the midline and extended bilaterally and taken off the rectus muscles. Muscles were divided in the midline. The anterior peritoneum was taken down ,extended superiorly and inferiorly, taking care to avoid traumatization of the bowel and the bladder. Dense adhesions were encountered here which were taken down carefully with the Bovie, as well as the Berry scissors. Extensions of the dissection went from the vesicouterine peritoneum up to the round ligament. Once the adhesions were taken down, a transverse hysterotomy incision was made in the uterus and bluntly extended bilaterally. Infant was delivered into the operative field. Rest of the body was delivered, handed off to the resuscitation team after a 45 second cord clamping delay. Hysterotomy incision was identified. Additional adhesions were taken down, so I could visualize the entire incision, and at this point, the endometrial cavity was evacuated of all blood and clot material. The hysterotomy incision was repaired using running locking chromic suture. Additional [id number] were used throughout the serosa of the uterus to establish hemostasis. The patient had extensive denuded areas due to the adhesiolysis that were made hemostatic and once hemostasis was achieved, Interceed was placed along the anterior surface of the uterus. Abdominal musculature was plicated together in the midline using 3-0 Vicryl and a #1 PDS was used to close the fascia. Subcuticular suture of Monocryl was placed in the skin. She tolerated the procedure well. She was taken back to the recovery room in good condition. MD MEE Garcia/VARUN , 08:14 AM , 08:32 AM
--- NOTE | 2018-03-02 08:48 | HHI.OB ---
Subjective Post Operative Day: 1 Remarks Patient seen and examined this morning. AFVSS overnight. Postoperative day #1. Patient states her pain has been well-controlled. Incision not draining. Decreased lochia. Denies dysuria. No breast tenderness. Appetite good. No nausea or vomiting. Not yet passing flatus. Denies fevers or chills, calf pain , shortness of breath, or cough. Objective Vitals/I&O Vital Signs Date Time Temp Pulse Resp B/P (MAP) Pulse Ox O2 Delivery O2 Flow Rate FiO2 03/02/18 04:08 98.5 69 17 109/64 (79) 03/01/18 23:51 97.2 80 18 95/52 (66) 03/01/18 20:07 98.4 70 18 92/52 (65) Result Diagram: 03/02/18 0528 Objective Remarks GENERAL: Well-nourished, well-developed patient. CARDIOVASCULAR: Regular rate and rhythm without murmurs, gallops, or rubs. RESPIRATORY: Breath sounds equal bilaterally. No accessory muscle use. ABDOMEN/GI: Abdomen soft, non-tender, bowel sounds present. Incision: Covered by dressing, appearing dry Fundus: Firm, non-tender at umbilicus. GENITOURINARY: Light to moderate bleeding. EXTREMITIES: No cyanosis or edema, non-tender, without signs of DVT. Medications and IVs Current Medications Medications (Trade) Dose Ordered Sig/Bradly Route Start Time Stop Time Status Last Admin Lactated Ringer's 1,000 ml @ 125 mls/hr Q8H IV 02/28/18 13:23 03/01/18 05:23 Lactated Ringer's 1,000 ml @ 3,000 mls/hr Q20M PRN IV 02/28/18 13:23 Sodium Chloride 1,000 ml @ 100 mls/hr Q10H PRN IV 02/28/18 13:43 (Xylocaine 1% Inj (50 ml)) 0.1 ml UNSCH X1 PRN I-DERMAL 02/28/18 13:30 03/03/18 13:29 (Bicitra Liq) 30 ml G[employer] MAIN [employer] LINE FITTER PO 02/28/18 13:30 03/04/18 13:29 (fentaNYL INJ) 50 mcg Q1H PRN IV PUSH 02/28/18 13:30 (fentaNYL INJ) 100 mcg Q1H PRN IV PUSH 02/28/18 13:30 (Xylocaine 1% Inj (50 ml)) 10 ml UNSCH X1 PRN INFIL 02/28/18 13:30 03/02/18 13:29 (Muri-Lube Oil) 10 ml UNSCH PRN TOPICAL 02/28/18 13:30 Oxytocin 500 ml @ 0 mls/hr TITRATE PRN IV 02/28/18 13:30 02/28/18 14:49 Lactated Ringer's 1,000 ml @ 100 mls/hr Q10H IV 03/01/18 21:00 03/02/18 16:59 03/01/18 21:00 Oxytocin 500 ml @ 100 mls/hr UNSCH X1 PRN IV 03/01/18 21:00 03/02/18 20:59 (NS Flush) 2 ml BID IV FLUSH 03/01/18 21:00 (NS Flush) 2 ml UNSCH PRN IV FLUSH 03/01/18 16:00 (Mylicon Chew) 80 mg QID PRN PO 03/01/18 16:00 (Motrin) 600 mg Q6H PRN PO 03/01/18 16:00 03/02/18 05:13 (Percocet 5-325 Mg) 1 tab Q4H PRN PO 03/01/18 16:00 03/02/18 05:13 (Percocet 5-325 Mg) 2 tab Q4H PRN PO 03/01/18 16:00 (Sandra-Colace) 2 tab Q12H PRN PO 03/01/18 16:00 03/02/18 05:12 (M-M-R Ii Inj) 0.5 ml ONCE ONCE SQ 03/02/18 16:00 03/02/18 16:01 (Boostrix Inj) 0.5 ml ONCE ONCE IM 03/02/18 16:00 03/02/18 16:01 (Zofran Odt) 4 mg Q6H PRN PO 03/01/18 16:15 ([facility] Nursing Information) NO SYSTEMIC NARCOTICS TO BE GIVEN FO... UNSCH PRN .XX 03/01/18 17:00 03/02/18 16:59 (Narcan Inj) 0.4 mg UNSCH PRN IV PUSH 03/01/18 17:00 03/02/18 16:59 (Benadryl Inj) 25 mg Q6H PRN IV PUSH 03/01/18 17:00 03/02/18 16:59 (Benadryl) 50 mg Q6H PRN PO 03/01/18 17:00 03/02/18 16:59 ([facility] Nursing Information) ALL NURSING DEPARTMENTS UNSCH PRN .XX 03/01/18 17:00 03/02/18 16:59 (Vistaril Inj) 50 mg Q6H PRN IM 03/01/18 18:30 03/01/18 19:13 Assessment/Plan Assessment and Plan 28 year-old POD#1 s/p due to failure to progress. 1. Postoperative Care - AFVSS - Incision covered by bandage, appearing dry - Postop H&H reviewed and within normal limits - Percocet and Motrin prn pain - Encouraged OOB, as tolerated - Advised pelvic rest x 6 weeks - Contraception: Discussed with patient this morning, patient will follow up with her outpatient OB provider - F/u in 1 week with OB provider for incision check dw Dr. Lozoya Discharge Planning Anticipate discharge home in 1-2 days pending stable clinical course Joaquín Baxter MD R2 March 02, 2018 08:48
[2018-03-02] MEDS ORDERED: MEASLES, MUMPS, RUBELLA VACCINE 0.5 ML VIAL SQ ONE (16:00)
[2018-03-02] MEDS ORDERED: DIPHTH/TETANUS/ACEL PERTUSSIS (BOOSTER) 0.5 ML VIAL/PFS IM ONE (16:00)
[2018-03-03] MEDS: oxyCODONE/ACETAMINOPHEN 5 MG/325 MG TAB PO PRN ×5 (02:04→22:18)
[2018-03-03] MEDS: IBUPROFEN 600 MG TAB PO PRN ×4 (02:04→22:16)
[2018-03-03] MEDS: DOCUSATE SODIUM 50 MG/SENNA 8.6 MG TAB PO PRN ×2 (08:31→22:16)
--- NOTE | 2018-03-03 08:48 | HHI.OB ---
Subjective Post Operative Day: 2 Remarks Patient seen and examined this morning. AFVSS overnight. Postoperative day #2. Patient states her pain has been relatively well controlled with her current pain regimen, improved from yesterday. Incision not draining. Decreased lochia. Denies dysuria. No breast tenderness. Appetite good. No nausea or vomiting. Endorses flatus. Ambulating well. Denies fevers or chills, calf pain, shortness of breath, or cough. She otherwise has no other complaints or concerns this morning. Objective Result Diagram: 03/02/18 0528 Objective Remarks GENERAL: Well-nourished, well-developed patient. CARDIOVASCULAR: Regular rate and rhythm without murmurs, gallops, or rubs. RESPIRATORY: Breath sounds equal bilaterally. No accessory muscle use. ABDOMEN/GI: Abdomen soft, non-tender, bowel sounds present. Incision: c/d/i Fundus: Firm, non-tender at umbilicus. GENITOURINARY: Light to moderate bleeding. EXTREMITIES: No cyanosis or edema, non-tender, without signs of DVT. Medications and IVs Current Medications Medications (Trade) Dose Ordered Sig/Bradly Route Start Time Stop Time Status Last Admin Lactated Ringer's 1,000 ml @ 125 mls/hr Q8H IV 02/28/18 13:23 03/01/18 05:23 Lactated Ringer's 1,000 ml @ 3,000 mls/hr Q20M PRN IV 02/28/18 13:23 Sodium Chloride 1,000 ml @ 100 mls/hr Q10H PRN IV 02/28/18 13:43 (Xylocaine 1% Inj (50 ml)) 0.1 ml UNSCH X1 PRN I-DERMAL 02/28/18 13:30 03/03/18 13:29 (Bicitra Liq) 30 ml STICK ROLLER PO 02/28/18 13:30 03/04/18 13:29 (fentaNYL INJ) 50 mcg Q1H PRN IV PUSH 02/28/18 13:30 (fentaNYL INJ) 100 mcg Q1H PRN IV PUSH 02/28/18 13:30 (Muri-Lube Oil) 10 ml UNSCH PRN TOPICAL 02/28/18 13:30 Oxytocin 500 ml @ 0 mls/hr TITRATE PRN IV 02/28/18 13:30 02/28/18 14:49 (NS Flush) 2 ml BID IV FLUSH 03/01/18 21:00 (NS Flush) 2 ml UNSCH PRN IV FLUSH 03/01/18 16:00 (Mylicon Chew) 80 mg QID PRN PO 03/01/18 16:00 (Motrin) 600 mg Q6H PRN PO 03/01/18 16:00 03/03/18 08:23 (Percocet 5-325 Mg) 1 tab Q4H PRN PO 03/01/18 16:00 03/02/18 12:53 (Percocet 5-325 Mg) 2 tab Q4H PRN PO 03/01/18 16:00 03/03/18 08:24 (Sandra-Colace) 2 tab Q12H PRN PO 03/01/18 16:00 03/03/18 08:31 (Zofran Odt) 4 mg Q6H PRN PO 03/01/18 16:15 (Vistaril Inj) 50 mg Q6H PRN IM 03/01/18 18:30 03/01/18 19:13 Assessment/Plan Assessment and Plan 28 year-old POD#2 s/p due to failure to progress. 1. Postoperative Care - AFVSS - Incision clean, dry, intact - Postop H&H reviewed and within normal limits - Percocet and Motrin prn pain - Encouraged OOB, as tolerated - Advised pelvic rest x 6 weeks - Contraception: Discussed with patient this morning, patient will follow up with her outpatient OB provider - Instructed f/u in 1 week with OB provider for incision check wdw OB hospitalist Discharge Planning Anticipate discharge home today or tomorrow pending stable clinical course Joaquín Baxter MD R2 Mar 03, 2018 08:48
--- NOTE | 2018-03-03 08:49 | HHI.DCPOC ---
Discharge Care Plan Diagnosis: (1) care following delivery Report Symptoms to Your Doctor -Temperature above 100.5 degrees -Redness, of incision or excessive or foul smelling drainage -Unusual pain or calf pain -Increased vaginal bleeding -Painful or difficulty urinating -Feelings of extreme sadness or anxiety after 2 weeks Goals to Promote Your Health * To maintain your health at the optimal level, follow-up with your OB provider within 1 week after hospital discharge for an incision check. Directions to Meet Your Goals Take your medications as prescribed Follow your dietary instruction Follow activity as directed Ensure plenty of rest for recovery Drink fluids for hydration Keep your appointments as scheduled Take your immunizations and boosters as scheduled If your symptoms worsen call your PCP, if no PCP go to Urgent Care Center or Emergency Room Smoking is Dangerous to Your Health. Avoid second hand smoke Call the 24-hour crisis hotline for domestic abuse at Joaquín Baxter MD R2 Mar 03, 2018 08:49
[2018-03-03] MEDS ORDERED: PERI PO (08:50)
[2018-03-03] MEDS ORDERED: OXYC1TAB63 PO (08:50)
[2018-03-03] MEDS ORDERED: IBUP-232 PO (08:50)
[2018-03-03] MEDS: SIMETHICONE 80 MG CHEWABLE TAB PO PRN (17:57)
[2018-03-03 21:16] VITALS: BP 134/73; PULSE 93; RESP 17; TEMP 97.8
[2018-03-04] MEDS: oxyCODONE/ACETAMINOPHEN 5 MG/325 MG TAB PO PRN ×2 (05:03→12:03)
[2018-03-04] MEDS: SIMETHICONE 80 MG CHEWABLE TAB PO PRN (05:03)
[2018-03-04] MEDS: IBUPROFEN 600 MG TAB PO PRN ×2 (05:04→12:02)
--- NOTE | 2018-03-04 07:56 | HHI.OB ---
Subjective Post Operative Day: 3 Remarks Patient seen and examined this morning. AFVSS overnight. Postoperative day #3. Patient states her pain has been tolerable. Incision not draining. Decreased lochia. Denies dysuria. No breast tenderness. Appetite good. No nausea or vomiting. Endorses flatus. Patient does report some dizziness, however she states she has been ambulating well without significant dizziness or lightheadedness. Denies fevers or chills, calf pain, shortness of breath, or cough. She otherwise has no other complaints or concerns this morning. (Joaquín Baxter MD R2) Remarks Patient seen and evaluated with resident under direct supervision, agree with assessment and plan. (Kenny Hannah MD) Objective Vitals/I&O Vital Signs Date Time Temp Pulse Resp B/P (MAP) Pulse Ox O2 Delivery O2 Flow Rate FiO2 03/03/18 21:16 97.8 93 17 134/73 (93) (Joaquín Baxter MD R2) Result Diagram: 03/02/18 0528 Objective Remarks GENERAL: Well-nourished, well-developed patient. CARDIOVASCULAR: Regular rate and rhythm without murmurs, gallops, or rubs. RESPIRATORY: Breath sounds equal bilaterally. No accessory muscle use. ABDOMEN/GI: Abdomen soft, non-tender, bowel sounds present. Incision: c/d/i Fundus: Firm, non-tender at umbilicus. GENITOURINARY: Light to moderate bleeding. EXTREMITIES: No cyanosis or edema, non-tender, without signs of DVT. Medications and IVs Current Medications Medications (Trade) Dose Ordered Sig/Bradly Route Start Time Stop Time Status Last Admin Lactated Ringer's 1,000 ml @ 125 mls/hr Q8H IV 02/28/18 13:23 03/01/18 05:23 Lactated Ringer's 1,000 ml @ 3,000 mls/hr Q20M PRN IV 02/28/18 13:23 Sodium Chloride 1,000 ml @ 100 mls/hr Q10H PRN IV 02/28/18 13:43 (Bicitra Liq) 30 ml MOSHGIACH PO 02/28/18 13:30 03/04/18 13:29 (fentaNYL INJ) 50 mcg Q1H PRN IV PUSH 02/28/18 13:30 (fentaNYL INJ) 100 mcg Q1H PRN IV PUSH 02/28/18 13:30 (Muri-Lube Oil) 10 ml UNSCH PRN TOPICAL 02/28/18 13:30 Oxytocin 500 ml @ 0 mls/hr TITRATE PRN IV 02/28/18 13:30 02/28/18 14:49 (NS Flush) 2 ml BID IV FLUSH 03/01/18 21:00 (NS Flush) 2 ml UNSCH PRN IV FLUSH 03/01/18 16:00 (Mylicon Chew) 80 mg QID PRN PO 03/01/18 16:00 03/04/18 05:03 (Motrin) 600 mg Q6H PRN PO 03/01/18 16:00 03/04/18 05:04 (Percocet 5-325 Mg) 1 tab Q4H PRN PO 03/01/18 16:00 03/04/18 05:03 (Percocet 5-325 Mg) 2 tab Q4H PRN PO 03/01/18 16:00 03/03/18 22:18 (Sandra-Colace) 2 tab Q12H PRN PO 03/01/18 16:00 03/03/18 22:16 (Zofran Odt) 4 mg Q6H PRN PO 03/01/18 16:15 (Vistaril Inj) 50 mg Q6H PRN IM 03/01/18 18:30 03/01/18 19:13 (Joaquín Baxter MD R2) Assessment/Plan Assessment and Plan 28 year-old POD#3 s/p due to failure to progress. 1. Postoperative Care - AFVSS - Incision clean, dry, intact - Postop H&H reviewed and within normal limits - Percocet and Motrin prn pain - Encouraged OOB, as tolerated - Advised pelvic rest x 6 weeks - Contraception: Discussed with patient this morning, patient will follow up with her outpatient OB provider - Instructed f/u in 1 week with OB provider for incision check wdw OB hospitalist Discharge Planning Anticipate discharge home today (Joaquín Baxter MD R2) Joaquín Baxter MD R2 Mar 04, 2018 07:56 Kenny Hannah MD Mar 05, 2018 16:46
[2018-03-04] MEDS: DOCUSATE SODIUM 50 MG/SENNA 8.6 MG TAB PO PRN (12:02)
== END 2018-03-04 16:11 | disposition home or self-care (01) | DRG 766 ==
LOC: HOBED 11:43 → H2EB 13:37 → H1EA 03-01 16:26
PROVIDERS: ADMIT Obstetrics & Gynecology; ATTEND Obstetrics & Gynecology
PROC: 10D00Z1 Extraction of Products of Conception, Low, Open Approach (ICD-10-PCS; principal; 2018-03-01)
PROC: 0DNW0ZZ Release Peritoneum, Open Approach (ICD-10-PCS; 2018-03-01)
PROC: 3E0P05Z Introduction of Adhesion Barrier into Female Reproductive, Open Approach (ICD-10-PCS; 2018-03-01)
DX: O60.14X0 Preterm labor third trimester with preterm delivery third trimester, not applicable or unspecified (principal); N73.6 Female pelvic peritoneal adhesions (postinfective); Z37.0 Single live birth; O66.41 Failed attempted vaginal birth after previous cesarean delivery; Z3A.36 36 weeks gestation of pregnancy; O34.211 Maternal care for low transverse scar from previous cesarean delivery; O62.2 Other uterine inertia
CPT/HCPCS: 59025; 80307; 81001; 84112; 85025; C1765; J0131; J1100; J1200; J1580; J2274; J2370; J2405; J2590; J3370; J3410; J7050; J7120